=== PATIENT | male | born 2000 | race Caucasian/White ===

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

== ENCOUNTER 2019-10-01 18:33 | Emergency (ER) | payer OTHER, BC ==
[2019-10-01] MEDS ORDERED: SODIUM CHLORIDE 0.9% 1,000 ML IV STA (19:22)
[2019-10-01] MEDS ORDERED: KETOROLAC 15 MG/ML 1 ML VIAL IVP STA (19:23)
[2019-10-01] MEDS ORDERED: DICYCLOMINE 10 MG/ML 2 ML AMP IM STA (19:23)
[2019-10-01 19:54] LABS: Basophils # (A) 0.1 k/uL (0-0.2); Basophils % (A) 1 %; Eosinophils # (A) 0.1 k/uL (0-0.7); Eosinophils % (A) 1 %; HCT 49.6 % (39.0-53.0); HGB 16.7 gm/dL (13.0-17.5); Lymphocytes # (A) 1.2 k/uL (1.0-4.8); Lymphocytes % (A) 9 %; MCH 30.6 pg (25.0-35.0); MCHC 33.7 g/dL (31.0-37.0); MCV 90.7 fL (80.0-100.0); Monocytes # (A) 0.6 k/uL (0-1.0); Monocytes % (A) 5 %; Neutrophils # (A) 10.5 k/uL (1.3-7.7); Neutrophils % (A) 84 %; Platelet Count 214 k/uL (150-450); RBC 5.47 m/uL (4.30-5.90); RDW 12.3 % (11.5-15.5); WBC 12.5 k/uL (4.0-11.0)
--- NOTE | 2019-10-01 20:13 | XR ---
EXAMINATION TYPE: XR KUB DATE OF EXAM: 10/01/2019 COMPARISON: NONE HISTORY: Abdominal pain TECHNIQUE: 2 views upright FINDINGS: There is no sign of intestinal obstruction or pneumoperitoneum. Fecal pattern is normal. Georgina ng bases are clear. There are no pathologic calcifications over the kidneys. There is mild thoracolum bar dextroscoliosis. There is no evidence of a mass. IMPRESSION: Nonacute abdomen.
[2019-10-01 20:20] VITALS: BP 114/74; PULSE 88; RESP 18; TEMP 99
[2019-10-01 20:20] LABS: ALT 19 U/L (4-49); AST 26 U/L (17-59); African American GFR (CKD) >90 (>60 ml/min/1.73 sqM); Alkaline Phosphatase 57 U/L (38-126); Amylase 56 U/L (30-110); Anion Gap 10 mmol/L; Blood Urea Nitrogen 11 mg/dL (9-20); Calcium 9.8 mg/dL (8.4-10.2); Carbon Dioxide 26 mmol/L (22-30); Chloride 103 mmol/L (98-107); Glucose 89 mg/dL (74-99); Non-African American GFR(CKD) >90 (>60 ml/min/1.73 sqM); Potassium 3.8 mmol/L (3.5-5.1); Sodium 139 mmol/L (137-145); Total Bilirubin 0.4 mg/dL (0.2-1.3); Total Protein 7.7 g/dL (6.3-8.2)
--- NOTE | 2019-10-01 20:38 | ED ---
Abdominal Pain HPI - General Chief Complaint: Abdominal Pain Stated Complaint: Abd pain Time Seen by Provider: 10/01/19 18:53 Source: patient Mode of arrival: ambulatory Limitations: no limitations - History of Present Illness Initial Comments: 19-year-old male patient presents to the emergency department today for evaluation of abdominal pain and diarrhea. Patient states he has had diarrhea for the last 3 days. States he is unable to get off the toilet due to frequency of episodes. States his bowel movements are watery. Denies any hematochezia or melena. States he has been nauseated but denies any vomiting. States he has been able to eat and drink today. Denies any fever or chills. States he is having lower abdominal pain with this especially prior to bowel movements. Denies history of abdominal surgery. Denies any sick contacts or recent travel. Denies any new medications. Patient denies any recent rash, cough, shortness of breath, chest pain, back pain, numbness, tingling, dizziness, weakness, hematuria, dysuria, urinary urgency, urinary frequency, headache, visual changes, or any other complaints. - Related Data Previous Rx's Medication Instructions Recorded Ondansetron Odt [Zofran Odt] 4 mg PO Q8HR PRN #10 tab 04/15/14 Dicyclomine [Bentyl] 20 mg PO QID #12 tablet 10/01/19 Allergies Allergy/AdvReac Type Severity Reaction Status Date / Time No Known Allergies Allergy Verified 10/01/19 18:51 Review of Systems ROS Statement: Those systems with pertinent positive or pertinent negative responses have been documented in the HPI. ROS Other: All systems not noted in ROS Statement are negative. Past Medical History Past Medical History: No Reported History History of Any Multi-Drug Resistant Organisms: None Reported Past Surgical History: No Surgical Hx Reported Past Psychological History: No Psychological Hx Reported Smoking Status: Vaper Past Alcohol Use History: None Reported Past Drug Use History: None Reported General Exam Limitations: no limitations General appearance: alert, in no apparent distress, other (This is a well- developed, well-nourished adult male patient in no acute distress. Vital signs upon presentation are temperature 99.2F, pulse 99, respirations 20, blood pressure 108/78, pulse ox 98% on room air.) Respiratory exam: Present: normal lung sounds bilaterally. Absent: respiratory distress, wheezes, rales, rhonchi, stridor Cardiovascular Exam: Present: regular rate, normal rhythm, normal heart sounds. Absent: systolic murmur, diastolic murmur, rubs, gallop, clicks GI/Abdominal exam: Present: soft, normal bowel sounds. Absent: distended, tenderness, guarding, rebound, rigid Neurological exam: Present: alert, oriented X3, CN II-XII intact Psychiatric exam: Present: normal affect, normal mood Skin exam: Present: warm, dry, intact, normal color. Absent: rash Course Vital Signs 10/01/19 10/01/19 18:49 20:10 Temperature 99.2 F 99.0 F Pulse Rate 99 88 Respiratory 20 18 Rate Blood Pressure 108/78 114/74 O2 Sat by Pulse 98 97 Oximetry Medical Decision Making - Medical Decision Making 19-year-old male patient presents to the emergency department today for evaluation of abdominal pain and diarrhea. Physical examination did reveal mild lower abdominal tenderness. Labs reviewed and were unremarkable. Stool sample, culture, C. diff was ordered, patient was unable to provide sample while in the emergency department. Upon reevaluation patient states he is feeling much better. States that symptoms have improved. He is requesting discharge home and a work note to return to work tonight. He'll be given prescription for Bentyl and instructions to increase fluids and rest. He is instructed to follow-up with his primary care physician for recheck in 1-2 days. He is given prescription for outpatient stool sample should he continue to have diarrhea. Return parameters were discussed in detail. He verbalizes understanding and agrees with this plan - Lab Data Result diagrams: 10/01/19 19:35 10/01/19 19:35 Lab Results 10/01/19 10/01/19 10/01/19 Range/Units 19:35 19:35 20:01 WBC 12.5 H (4.0-11.0) k/uL RBC 5.47 (4.30-5.90) m/uL Hgb 16.7 (13.0-17.5) gm/dL Hct 49.6 (39.0-53.0) % MCV 90.7 (80.0-100.0) fL MCH 30.6 (25.0-35.0) pg MCHC 33.7 (31.0-37.0) g/dL RDW 12.3 (11.5-15.5) % Plt Count 214 (150-450) k/uL Neutrophils % 84 % Lymphocytes % 9 % Monocytes % 5 % Eosinophils % 1 % Basophils % 1 % Neutrophils # 10.5 H (1.3-7.7) k/uL Lymphocytes # 1.2 (1.0-4.8) k/uL Monocytes # 0.6 (0-1.0) k/uL Eosinophils # 0.1 (0-0.7) k/uL Basophils # 0.1 (0-0.2) k/uL Sodium 139 (137-145) mmol/L Potassium 3.8 (3.5-5.1) mmol/L Chloride 103 (98-107) mmol/L Carbon Dioxide 26 (22-30) mmol/L Anion Gap 10 mmol/L BUN 11 (9-20) mg/dL Creatinine 0.89 (0.66-1.25) mg/dL Est GFR (CKD-EPI)AfAm >90 (>60 ml/min/1.73 sqM) Est GFR (CKD-EPI)NonAf >90 (>60 ml/min/1.73 sqM) Glucose 89 (74-99) mg/dL Calcium 9.8 (8.4-10.2) mg/dL Total Bilirubin 0.4 (0.2-1.3) mg/dL AST 26 (17-59) U/L ALT 19 (4-49) U/L Alkaline Phosphatase 57 (38-126) U/L Total Protein 7.7 (6.3-8.2) g/dL Albumin 5.0 (3.5-5.0) g/dL Amylase 56 (30-110) U/L Lipase 20 L (23-300) U/L Urine Color Yellow Urine Appearance Clear (Clear) Urine pH 6.0 (5.0-8.0) Ur Specific [place] 1.029 (1.001-1.035) Urine Protein 1+ H (Negative) Urine Glucose (UA) Negative (Negative) Urine Ketones Negative (Negative) Urine Blood Negative (Negative) Urine Nitrite Negative (Negative) Urine Bilirubin Negative (Negative) Urine Urobilinogen <2.0 (<2.0) mg/dL Ur Leukocyte Esterase Negative (Negative) Urine RBC 1 (0-5) /hpf Urine WBC 1 (0-5) /hpf Hyaline Casts 1 (0-2) /lpf Urine Mucus Moderate H (None) /hpf - Radiology Data Radiology results: report reviewed, image reviewed 2 views of the abdomen are obtained. Report was reviewed in its entirety. Impression by Dr. Jamison shows nonacute abdomen. Disposition Clinical Impression: Diarrhea, Abdominal pain Disposition: HOME SELF-CARE Condition: Good Instructions (If sedation given, give patient instructions): Acute Diarrhea (ED), Abdominal Pain (ED) Additional Instructions: Increase fluids. Rest. Take medications as directed. Follow up with her primary care physician for recheck in 1-2 days. Return with stool sample for testing. Return to emergency department immediately for any new, worsening, or concerning symptoms Prescriptions: Dicyclomine [Bentyl] 20 mg PO QID #12 tablet Is patient prescribed a controlled substance at d/c from ED?: No Referrals: Jordon Clark MD [Primary Care Provider] - 1-2 days Time of Disposition: 20:38
[2019-10-01 20:39] LABS: Appearance,Urine Clear (Clear); Bilirubin,Urine Negative (Negative); Blood,Urine Negative (Negative); Color,Urine Yellow; Glucose,Urine (UA) Negative (Negative); Hyaline Casts,Urine 1 /lpf (0-2); Ketones,Urine Negative (Negative); Leukocyte Esterase,Urine Negative (Negative); Mucus,Urine Moderate /hpf; Nitrite,Urine Negative (Negative); Protein,Urine 1+ (Negative); RBC,Urine 1 /hpf (0-5); Specific Gravity,Urine 1.029 (1.001-1.035); Urobilinogen,Urine <2.0 mg/dL (<2.0); WBC,Urine 1 /hpf (0-5)
== END 2019-10-01 20:49 | disposition home or self-care (01) ==
LOC: EC 18:33
DX: R10.30 Lower abdominal pain, unspecified (principal); R19.7 Diarrhea, unspecified; F17.290 Nicotine dependence, other tobacco product, uncomplicated
CPT/HCPCS: 36415; 80053; 82150; 83690; 85025; 81001; 74018; 99284; 96374; 96372; 96361; J0500; J1885